=== PATIENT | male | born 1975 | race Caucasian/White ===

== ENCOUNTER → 2018-11-13 | Outpatient (CLI) | payer OTHER ==
--- NOTE | 2018-11-13 12:31 | RADIOLOGY REPORT (SQ) ---
EXAM DESCRIPTION: MRI HEAD WITHOUT COMPLETED DATE/TIME: 11/13/2018 11:40 am REASON FOR STUDY: HEADACHE R51 HEADACHE M54.2 CERVICALGIA COMPARISON: None. TECHNIQUE: Multiplanar imaging includes non-contrasted T1, T2, FLAIR, and diffusion with ADC map seq uences. Images stored on PACS. LIMITATIONS: None. FINDINGS: ANATOMY: No anomalies. Normal vascular flow voids. Pituitary fossa normal. CSF SPACES: Normal in size and contour. No hemorrhage. CEREBRUM: Sulci and gyri normal in size and contour. Normal white matter signal on FLAIR imaging. No evidence of hemorrhage, mass, or extraaxial fluid collection. POSTERIOR FOSSA: No signal alteration. No hemorrhage. No edema, masses or mass effect. Internal kwan tory canals, cerebello-pontine angles, mastoids normal. DIFFUSION IMAGING: Negative for acute or sub-acute infarction. ORBITS: No masses. Globes normal. PARANASAL SINUSES: No fluid levels. Minimal right maxillary mucosal thickening. . OTHER: No other significant finding. IMPRESSION: Age-appropriate exam. EVIDENCE OF ACUTE STROKE: NO. TECHNICAL DOCUMENTATION: JOB ID: [id number] [place]-[id number] 2010 [employer]- All Rights Reserved Reading location - IP/workstation name: [employer]
--- NOTE | 2018-11-13 12:38 | RADIOLOGY REPORT (SQ) ---
EXAM DESCRIPTION: MRI CERVICAL SPINE WITHOUT COMPLETED DATE/TIME: 11/13/2018 11:40 am REASON FOR STUDY: CERVICALGIA R51 HEADACHE M54.2 CERVICALGIA COMPARISON: None. TECHNIQUE: Sagittal and Axial imaging includes T1, T2, STIR and gradient echo sequences. LIMITATIONS: None. FINDINGS: ALIGNMENT: Normal. VERTEBRAE: Intact. BONE MARROW: Normal. No marrow replacement or reactive changes. DISCS: Moderate spondylotic changes are present at C5-6 and C6-7 levels with posterior spondylotic ri dging and uncovertebral joint hypertrophy. HARDWARE: None in the spine. CORD AND BASE OF BRAIN: Normal in size and signal intensity. SOFT TISSUES: No soft tissue masses. C1-C2: No significant spinal stenosis. C2-C3: No significant spinal stenosis or exit foraminal stenosis. C3-C4: No significant spinal stenosis or exit foraminal stenosis. C4-C5: No significant spinal stenosis or exit foraminal stenosis. C5-C6: Moderate-severe right exit foraminal stenosis, moderate left side stenosis. Mild effacement o f the anterior thecal sac without significant central canal stenosis. C6-C7: Moderate-severe right exit foraminal stenosis, moderate left side stenosis. Mild effacement o f the anterior thecal sac without significant central canal stenosis. C7-T1: No significant spinal stenosis or exit foraminal stenosis. UPPER THORACIC: Incompletely imaged. No significant spinal stenosis or exit foraminal stenosis. OTHER: No other significant finding. IMPRESSION: C5-6 and C6-7 level Moderate-severe right exit foraminal stenosis, moderate left side st enosis. TECHNICAL DOCUMENTATION: JOB ID: [id number] [place]-72 2010 [employer]- All Rights Reserved Reading location - IP/workstation name: [email or web address]
== END ==
LOC: RAD 10:45
PROVIDERS: ATTEND Physician Assistant
DX: R51 Headache (principal); M54.2 Cervicalgia
CPT/HCPCS: 70551; 72141